=== PATIENT | male | born 1990 | race Caucasian/White ===

== ENCOUNTER 2017-08-30 10:15 | Emergency (ER) | payer OTHER ==
[2017-08-30 10:42] VITALS: RESP 18
--- NOTE | 2017-08-30 11:15 | XR ---
EXAMINATION TYPE: XR foot complete LT DATE OF EXAM: 08/30/2017 CLINICAL HISTORY: Left foot and ankle injury. Edema. TECHNIQUE: Frontal, lateral and oblique images of the left ankle and foot are obtained. COMPARISON: None. FINDINGS: There is a minimally displaced noncomminuted medial malleolar fracture with small tibiotala r joint effusion and soft tissue swelling of ankle most pronounced over the medial malleolus. This is best seen on the oblique image of the ankle and images of the foot. This is displaced approximately 2 mm distally. There is concern for underlying deltoid ligament injury as there is obscuration of the medial clear space. IMPRESSION: Minimally displaced noncomminuted distal medial malleolus fracture with overlying soft ti ssue swelling and obscuration of the medial clear space concerning for deltoid ligament injury.
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
--- NOTE | 2017-08-30 12:52 | XR ---
EXAMINATION TYPE: XR ankle complete LT DATE OF EXAM: 08/30/2017 CLINICAL HISTORY: Left foot and ankle injury. Edema. TECHNIQUE: Frontal, lateral and oblique images of the left ankle and foot are obtained. COMPARISON: None. FINDINGS: There is a minimally displaced noncomminuted medial malleolar fracture with small tibiotala r joint effusion and soft tissue swelling of ankle most pronounced over the medial malleolus. This is best seen on the oblique image of the ankle and images of the foot. This is displaced approximately 2 mm distally. There is concern for underlying deltoid ligament injury as there is obscuration and wi dening of the medial clear space. IMPRESSION: Minimally displaced noncomminuted distal medial malleolus fracture with overlying soft ti ssue swelling and obscuration of the medial clear space concerning for deltoid ligament injury.
[2017-08-30 12:54] VITALS: BP 126/75; PULSE 63; TEMP 97.9
== END 2017-08-30 12:53 | disposition home or self-care (01) ==
LOC: EC 10:15
DX: S82.52XA Displaced fracture of medial malleolus of left tibia, initial encounter for closed fracture (principal); J45.909 Unspecified asthma, uncomplicated; Z91.048 Other nonmedicinal substance allergy status; X50.1XXA Overexertion from prolonged static or awkward postures, initial encounter; Y93.51 Activity, roller skating (inline) and skateboarding
CPT/HCPCS: 29515; 99284

== ENCOUNTER 2020-09-28 13:13 | Inpatient (IN) | payer OTHER ==
[2020-09-28] MEDS ORDERED: LORazepam 1 MG TAB PO PRN (14:38)
[2020-09-28] MEDS ORDERED: ACETAMINOPHEN TAB 325 MG TAB PO PRN (14:38)
[2020-09-28] MEDS ORDERED: MAG HYDROX/AL HYDROX/SIMETH 30 ML CUP PO PRN (14:38)
[2020-09-28] MEDS ORDERED: MAGNESIUM HYDROXIDE 2,400 MG/10 ML CUP PO PRN (14:38)
[2020-09-28] MEDS ORDERED: HALOPERIDOL LACTATE 5 MG/ML 1 ML VIAL IM PRN (14:42)
[2020-09-28] MEDS ORDERED: LORazepam 2 MG/ML INJ IM PRN (14:42)
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
[2020-09-28 15:13] VITALS: RESP 16
[2020-09-29] MEDS ORDERED: ALBUTEROL HFA INHALER INHALATION PRN (00:03)
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
[2020-09-29 09:58] LABS: Basophils % (A) 0 %; Eosinophils # (A) 0.1 k/uL (0-0.7); Eosinophils % (A) 2 %; HCT 47.6 % (39.0-53.0); HGB 16.1 gm/dL (13.0-17.5); Lymphocytes # (A) 1.5 k/uL (1.0-4.8); Lymphocytes % (A) 21 %; MCH 30.4 pg (25.0-35.0); MCHC 33.8 g/dL (31.0-37.0); MCV 90.1 fL (80.0-100.0); Mean Platelet Volume 7.3; Monocytes # (A) 0.4 k/uL (0-1.0); Monocytes % (A) 5 %; Neutrophils # (A) 5.2 k/uL (1.3-7.7); Neutrophils % (A) 70 %; Platelet Count 302 k/uL (150-450); RBC 5.29 m/uL (4.30-5.90); WBC 7.3 k/uL (3.8-10.6)
[2020-09-29 09:59] LABS: ALT 16 U/L (4-49); AST 23 U/L (17-59); African American GFR (CKD) >90 (>60 ml/min/1.73 sqM); Albumin 4.6 g/dL (3.5-5.0); Alkaline Phosphatase 66 U/L (38-126); Anion Gap 8 mmol/L; Blood Urea Nitrogen 21 mg/dL (9-20); Carbon Dioxide 26 mmol/L (22-30); Chloride 104 mmol/L (98-107); Glucose 94 mg/dL (74-99); Non-African American GFR(CKD) >90 (>60 ml/min/1.73 sqM); Potassium 4.5 mmol/L (3.5-5.1); Sodium 138 mmol/L (137-145); Total Bilirubin 0.7 mg/dL (0.2-1.3); Total Protein 7.3 g/dL (6.3-8.2)
[2020-09-29] MEDS: SERTRALINE 25 MG TAB PO SCH (14:11)
[2020-09-29 17:44] LABS: Chol/HDL Ratio 5.43; Cholesterol 163 mg/dL (0-200)
[2020-09-29 20:30] LABS: Hemoglobin A1C 5.2 % (4.0-6.0)
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
[2020-09-30 07:11] VITALS: TEMP 97.8
[2020-09-30] MEDS: SERTRALINE 25 MG TAB PO SCH (08:48)
[2020-09-30 08:51] VITALS: BP 136/98; PULSE 92
--- NOTE | 2020-09-30 11:27 | P.PN ---
Progress Note - Text Progress Note Date: 09/30/20 Interval History: Patient was seen sitting in his room and was directable and agreeable to speak with abstract writer in the office. The patient reports that he is feeling anxious and scared about going to [facility] after this admission. He is currently not reporting any suicidal or homicidal ideation, intention, and/or plan. He does express remorse for his actions, stating that this is non-like him. He expresses that he will never do it again and that he has been talking to his girlfriend over the phone since his admission. The patient has been adherent with his Zoloft is not reporting any significant side effects at this time. He is not reporting any auditory or visual hallucinations. He is denying any paranoia or other delusions. The patient is denying any issues regarding his sleep or his appetite. Mental Status Exam: General Appearance: Patient appears to be stated age is alert, directable, and cooperative. Good hygiene and grooming. Behavior: Patient is calmly seated without any agitated behavior. Psychomotor activity is normal. Eye contact is appropriate. Speech: Patient's speech is fluent and nonpressured. Spontaneous, with normal rate, tone, volume and fluency. Mood/Affect: Mood is nervous, affect is congruent and worried. Suicidality/Homicidality: Patient denies having any suicidal or homicidal ideation intent or plan. Perceptions: Patient denies any visual hallucinations and denies any auditory hallucinations Though content/process: There is no evidence of any delusional thought content and thought process is linear and goal-directed. Memory and concentration: AOX3, grossly intact for the purposes of this session Judgment and insight: Improving mildly Vital Signs Temp 97.8 F 09/30/20 07:10 Pulse 92 09/30/20 08:50 Resp 16 09/30/20 08:50 BP 136/98 09/30/20 08:50 Pulse Ox 100 09/28/20 15:00 Intake & Output 09/29/20 09/30/20 09/30/20 18:59 06:59 18:59 Weight 66.5 kg Laboratory Results - Last 24 Hours 09/29/20 09/29/20 09:30 09:[address] Glu mg/dL 103 Hemoglobin A1c 5.2 Triglycerides 120.0 Cholesterol 163 LDL Cholesterol, Calc 109.0 VLDL Cholesterol, Calc 24.00 HDL Cholesterol 30.0 L Cholesterol/HDL Ratio 5.43 Assessment Adjustment disorder with depression and anxiety symptoms. Rule out major depressive disorder Anxiety disorder, unspecified Plan: -Patient continues to meet criteria for inpatient psychiatric admission for symptom stabilization and safety. Patient has signed adult voluntary form and medication consent and was placed in patient's chart. Patient is a [facility] hold. -Medications: Continue Zoloft 25 mg by mouth daily for anxiety and depression -When necessary Ativan and Geodon for agitation/aggression. -SW on board for discharge planning. Encouraged the patient to participate in milieu.
[2020-10-01] MEDS: SERTRALINE 25 MG TAB PO SCH (08:13)
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
== END 2020-10-01 13:55 | DRG 885 ==
LOC: EC 13:13 → 3MHU 14:36
PROVIDERS: ADMIT Psychiatry & Neurology Psychiatry; ATTEND Psychiatry & Neurology Psychiatry
DX: F32.2 Major depressive disorder, single episode, severe without psychotic features (principal); R45.851 Suicidal ideations; J45.30 Mild persistent asthma, uncomplicated; R45.87 Impulsiveness; F43.23 Adjustment disorder with mixed anxiety and depressed mood; Z79.899 Other long term (current) drug therapy; Z82.5 Family history of asthma and other chronic lower respiratory diseases; Z91.19 Patient's noncompliance with other medical treatment and regimen
CPT/HCPCS: 80053; 80061; 82075; 83036; 84443; 85025; 99285